=== PATIENT | female | born 1935 | race Caucasian/White ===

== ENCOUNTER 2017-06-22 15:04 | Emergency (ER) | payer MEDICARE ==
[2017-06-22] MEDS ORDERED: OXYCODONE-ACETAMINOPHEN 5-325 MG TABLET PO ONE (15:42)
[2017-06-22] MEDS ORDERED: NORMAL SALINE 1000 ML 250 ML IV ONE (15:45)
[2017-06-22] MEDS ORDERED: HYDROMORPHONE HCL INJ/PF 2 MG/ML AMPULE IV ONE (15:47)
--- NOTE | 2017-06-22 15:53 | ER Document Report ---
ED General - General Mode of Arrival: Wheelchair Information source: Patient TRAVEL OUTSIDE OF THE [place] IN LAST 30 DAYS: No - HPI Onset: Other - 06/20/2017 <HOMA BURKS - Last Filed: 06/22/17 15:56> <IOANA GALLAGHER - Last Filed: 06/22/17 18:33> - General Chief Complaint: Chest Pain Stated Complaint: CHEST PAIN Time Seen by Provider: 06/22/17 15:24 Notes: Patient is a 82 year old female presenting to the emergency department complaining of upper back pain onset 2 days ago as well as chest pain onset this morning. Patient states that she "plotted a very heavy plant" on Friday and she started to have back pain that evening. Patient states that the pain cause her inability to sleep since Friday. Patient states that her back pain radiated into her chest and down her left arm. Patient had a lidocaine injection for her spinal stenosis last Friday. Patient has a history of myocardial infarction, stents x5, CAD, hypertension, and hypercholesterolemia. (HOMA BURKS) - Related Data Allergies/Adverse Reactions: sulfamethoxazole [From Bactrim] Allergy (Verified 03/06/13 17:33) trimethoprim [From Bactrim] Allergy (Verified 03/06/13 17:33) Past Medical History - Social History Smoking Status: Never Smoker Cigarette use (# per day): No Chew tobacco use (# tins/day): No Smoking Education Provided: No Frequency of alcohol use: None Drug Abuse: None Lives with: Alone Family History: None Patient has suicidal ideation: No Patient has homicidal ideation: No - Past Medical History Cardiac Medical History: Reports: Hx Congestive Heart Failure - hospitaized 2005 , Hx Coronary Artery Disease, Hx Heart Attack - 2007, Hx Hypercholesterolemia, Hx Hypertension Endocrine Medical History: Reports: Hx Hypothyroidism GI Medical History: Reports: Hx Ulcer - Musculoskeltal Medical History: Reports Hx Arthritis, Reports Other - spinal stenosis Past Surgical History: Reports: Hx Appendectomy - 1949, Hx Section, Hx Cholecystectomy - lap 2010, Hx Coronary Stent - x 5, Hx Genitourinary Surgery - bladder tack, Hx Hysterectomy - PAULA BSO , Hx Oral Surgery - wisdom teeth removal, Hx Orthopedic Surgery - bilateral knee replacements, Hx Tonsillectomy - as child, Hx Tubal Ligation - Immunizations Hx Diphtheria, Pertussis, Tetanus Vaccination: - unk Hx Pneumococcal Vaccination: 08/25/05 <HOMA BURKS - Last Filed: 06/22/17 15:56> Review of Systems - Review of Systems Constitutional: No symptoms reported EENT: No symptoms reported Cardiovascular: See HPI, Chest pain Respiratory: No symptoms reported Gastrointestinal: No symptoms reported Genitourinary: No symptoms reported Female Genitourinary: No symptoms reported Musculoskeletal: See HPI, Back pain, Other - shoulder pain Skin: No symptoms reported Hematologic/Lymphatic: No symptoms reported Neurological/Psychological: No symptoms reported -: Yes All other systems reviewed and negative <HOMA BURKS - Last Filed: 06/22/17 15:56> Physical Exam - Vital signs Interpretation: Hypertensive, Tachycardic - General General appearance: Appears well, Alert In distress: Mild - HEENT Head: Normocephalic, Atraumatic Eyes: Normal Pupils: PERRL Mucous membranes: Moist - Respiratory Respiratory status: No respiratory distress Chest status: Nontender Breath sounds: Normal Chest palpation: Normal - Cardiovascular Rhythm: Regular, Tachycardia - becomes more tachycardic when moving her hands and speaking Heart sounds: Normal auscultation Murmur: No - Abdominal Inspection: Normal Distension: No distension Bowel sounds: Normal Tenderness: Nontender Organomegaly: No organomegaly - Back Back: Tender - scapular musculature is tender to palpation, worse on the right than on the left. Tenderness to the spinal processes., Other - Kyphosis. No bony tenderness to palpation, no stepoffs or deformitites. - Extremities General upper extremity: Normal inspection, Normal ROM, Normal strength General lower extremity: Normal inspection, Normal ROM, Normal strength - Neurological Neuro grossly intact: Yes Cognition: Normal Orientation: AAOx4 [place] Coma Scale Eye Opening: Spontaneous Chastity Coma Scale Verbal: Oriented [place] Coma Scale Motor: Obeys Commands [place] Coma Scale Total: 15 Speech: Normal - Psychological Associated symptoms: Normal affect, Normal mood - Skin Skin Temperature: Warm Skin Moisture: Dry <HOMA BURKS - Last Filed: 06/22/17 15:56> - Respiratory Chest palpation: Tender - There is some tenderness to palpate the anterior chest wall in the sternal region.. No: Normal - Back Back: Tender - The medial scapular muscles are very tender to palpate, worse on the right than on the left. Palpating this area does reproduce her chief complaint. There is also tenderness to the upper thoracic spinous processes. <IOANA GALLAGHER - Last Filed: 06/22/17 18:33> - Vital signs Vitals: Resp BP Pulse Ox 27 H 150/99 H 98 06/22/17 15:29 06/22/17 15:29 06/22/17 15:29 Course - Laboratory Result Diagrams: 06/22/17 15:26 06/22/17 15:26 <HOMA BURKS - Last Filed: 06/22/17 15:56> - Laboratory Result Diagrams: 06/22/17 15:26 06/22/17 15:26 - Diagnostic Test Radiology reviewed: Image reviewed, Reports reviewed - There is significant kyphosis with degenerative disc space narrowing at multiple levels. No compression fractures are seen. - EKG Interpretation by Nh EKG shows normal: Sinus rhythm, [place], Intervals, QRS Complexes, ST-T Waves Rate: Tachycardia - 124 Rhythm: APC's When compared to previous EKG there are: Changes noted <IOANA GALLAGHER - Last Filed: 06/22/17 18:33> - Re-evaluation Re-evalutation: 06/22/17 18:22 When the patient first checked then an EKG showed a heart rate of 124. During the history and physical, the patient became quite animated using her hands to talk ingestor and seemed excited and her heart rate actually went to 160. She settled down and received some pain medication, her heart rate was in the 120 range. I gave her 2.5 mg of metoprolol and now her heart rate has been in the 70 range. In discussing this with the patient and her son, they admitted that she did not take her blood pressure medications today which include beta- blockers. First troponin was 0.074, so a repeat done about 2 hours later was down to 0.053 At this time she is quite comfortable and has no complaints, she states she will remember to take her regular medications when she gets home, and she will stop at the drugstore to get the pain medication that her doctor had called in which is waiting for her at [facility]. (IOANA GALLAGHER) - Vital Signs Vital signs: Temp Pulse Resp BP Pulse Ox 98.6 F 78 22 H 135/92 H 96 06/22/17 15:32 06/22/17 18:00 06/22/17 17:01 06/22/17 18:00 06/22/17 17:01 - Laboratory Laboratory results interpreted by me: 06/22/17 06/22/17 15:26 15:26 Hgb 16.0 H RDW 17.1 H Sodium 145.7 H Glucose 138 H Direct Bilirubin 0.5 H AST 55 H ALT 75 H Alkaline Phosphatase 160 H Discharge <HOMA BURKS - Last Filed: 06/22/17 15:56> <IOANA GALLAGHER - Last Filed: 06/22/17 18:33> - Discharge Clinical Impression: Tachycardia Muscle strain of scapular region Qualifiers: Encounter type: initial encounter Laterality: unspecified laterality Qualified Code(s): S46.919A - Strain of unspecified muscle, fascia and tendon at shoulder and upper arm level, unspecified arm, initial encounter Chest pain Qualifiers: Chest pain type: unspecified Qualified Code(s): R07.9 - Chest pain, unspecified Condition: Stable Disposition: HOME, SELF-CARE Additional Instructions: Chest Pain of Unclear Cause: The exact cause of your chest pain isn't clear. Fortunately, there is no evidence of a dangerous medical condition. Further testing may be required to find the source of the pain. Most often, we find that this pain is coming from the chest wall -- the muscles or rib joints in the chest. You should call the physician immediately if the pain radiates to the shoulder, jaw or arms; if you start to run a fever or develop a cough; or if you develop shortness of breath, or other new or alarming symptoms. Scapular Muscle Strain: You have strained the scapular muscles. This often occurs with strenuous exertion, or during an injury that suddenly stretches the muscle. The seriousness of a strain varies. Some strains heal within days, others cause problems for months. X-rays cannot show a muscle strain. X-rays are taken only if symptoms suggest that a fracture could be present. The usual treatment of a muscle strain is rest and moist heat. The muscle can be used again once pain subsides. Be sure to take your regular medications when you get home. Sure to stop at the drugstore and seed cone picker your pain medication prescription that your doctor had called in previously. Rest your chest and back muscles for the next few days. Follow-up with your doctor this week for recheck. RETURN TO THE EMERGENCY ROOM IF ANY NEW OR WORSENING SYMPTOMS. Referrals: MILLY QURESHI PA [Primary Care Provider] - Follow up as needed Scribe Attestation: 06/22/17 18:28 I personally performed the services described in the documentation, reviewed and edited the documentation which was dictated to the scribe in my presence, and it accurately records my words and actions. (IOANA GALLAGHER) Scribe Documentation - Scribe Written by Юлия:: Юлия Arango 06/22/2017 16:08 acting as scribe for :: Sariah <HOMA BURKS - Last Filed: 06/22/17 15:56>
[2017-06-22 15:55] LABS: ABSOLUTE EOSINOPHILS # (AUTO) 0.1 10^3/uL (0.0-0.6); ABSOLUTE LYMPHOCYTES (AUTO) 2.6 10^3/uL (0.5-4.7); ABSOLUTE NEUT (AUTO) 5.4 10^3/uL (1.7-8.2); BASOPHILS % (AUTO) 0.4 % (0-2); EOSINOPHILS % (AUTO) 0.6 % (0-6); HEMATOCRIT 46.6 % (36.0-47.0); HGB HCT DIFFERENCE 1.4; LYMPHOCYTES % (AUTO) 28.7 % (13-45); MEAN CORPUSCULAR HEMOGLOBIN 32.7 pg (27.0-33.4); MEAN CORPUSCULAR HGB CONC 34.4 g/dL (32.0-36.0); MEAN CORPUSCULAR VOLUME 95 fl (80-97); RED CELL DISTRIBUTION WIDTH 17.1 % (11.5-14.0); SEGMENTED NEUTROPHILS % (AUTO) 59.3 % (42-78); WHITE BLOOD COUNT 9.1 10^3/uL (4.0-10.5)
[2017-06-22] MEDS ORDERED: ONDANSETRON HCL INJ/PF 4 MG/2 ML SDV IV ONE (16:04)
[2017-06-22 16:09] LABS: ALANINE AMINOTRANSFERASE 75 U/L (9-52); ALBUMIN 4.4 g/dL (3.5-5.0); ALKALINE PHOSPHATASE 160 U/L (38-126); ANION GAP 16 (5-19); ASPARTATE AMINO TRANSFERASE 55 U/L (14-36); BILIRUBIN,DIRECT 0.5 mg/dL (0.0-0.4); BILIRUBIN,TOTAL 1.2 mg/dL (0.2-1.3); BLOOD UREA NITROGEN 16 mg/dL (7-20); CALCIUM 10.1 mg/dL (8.4-10.2); CARBON DIOXIDE 25 mmol/L (22-30); CHLORIDE 105 mmol/L (98-107); CREATINE KINASE 51 U/L (30-135); CREATININE RESULT 0.74 mg/dL (0.52-1.25); GLUCOSE 138 mg/dL (75-110); POTASSIUM 4.1 mmol/L (3.6-5.0); SODIUM 145.7 mmol/L (137-145); TOTAL PROTEIN 7.7 g/dL (6.3-8.2)
--- NOTE | 2017-06-22 16:34 | RADIOLOGY REPORT (SQ) ---
EXAM DESCRIPTION: T SPINE AP/LAT COMPLETED DATE/TIME: 06/22/2017 4:23 pm REASON FOR STUDY: make the PA view wide enough to see the chest COMPARISON: 11/25/2011 NUMBER OF VIEWS: Two views. TECHNIQUE: AP and lateral radiographic images acquired of the thoracic spine. LIMITATIONS: None. FINDINGS: MINERALIZATION: Osteopenia. ALIGNMENT: Lumbar scoliosis. VERTEBRAE: No fracture or bone lesion. Maintained height, normal segmentation. DISCS: Multilevel degenerative disc space narrowing with osteophyte formation. HARDWARE: None in the spine. MEDIASTINUM AND SOFT TISSUES: Normal heart size and aortic contour. No soft tissue abnormality. VISUALIZED LUNG OAKES: Clear. OTHER: Vascular calcifications. IMPRESSION: Osteopenia. Multilevel degenerative changes the spine. No definite acute abnormality. TECHNICAL DOCUMENTATION: JOB ID: [id number] [email or web address]- All Rights Reserved
--- NOTE | 2017-06-22 17:05 | EKG REPORT ---
SEVERITY:- OTHERWISE NORMAL ECG - SINUS TACHYCARDIA VENTRICULAR PREMATURE COMPLEX : Confirmed by: Rusty Huff 22-Jun-2017 17:05:18
[2017-06-22] MEDS ORDERED: METOPROLOL TARTRATE PF/INJ 5 MG/5 ML SDV IV ONE (17:27)
[2017-06-22 18:27] VITALS: BP 135/92
== END 2017-06-22 19:32 | disposition home or self-care (01) ==
LOC: ER 15:04
DX: S46.919A Strain of unspecified muscle, fascia and tendon at shoulder and upper arm level, unspecified arm, initial encounter (principal); X58.XXXA Exposure to other specified factors, initial encounter; R07.9 Chest pain, unspecified; M48.00 Spinal stenosis, site unspecified; M40.209 Unspecified kyphosis, site unspecified; I10 Essential (primary) hypertension; R00.0 Tachycardia, unspecified; T44.7X6A Underdosing of beta-adrenoreceptor antagonists, initial encounter; Z91.14 Patient's other noncompliance with medication regimen; I25.10 Atherosclerotic heart disease of native coronary artery without angina pectoris; I25.2 Old myocardial infarction; Z95.5 Presence of coronary angioplasty implant and graft; Z88.1 Allergy status to other antibiotic agents; Z79.899 Other long term (current) drug therapy
CPT/HCPCS: 93005; 99285; 96374; 96375; 36415; 82550; 85025; 80053; 84484; 72070; 93010; J3490; J1170; J2405; J7030

== ENCOUNTER 2018-07-03 09:33 | Emergency (ER) | payer MEDICARE, OTHER ==
[2018-07-03] MEDS ORDERED: IPRATROPIUM/ALBUTEROL 0.5-2.5 MG/3 ML AMPUL NEB ONE (10:15)
--- NOTE | 2018-07-03 10:20 | ER Document Report ---
ED General - General Chief Complaint: Respiratory Distress Stated Complaint: SHORTNESS OF BREATH Time Seen by Provider: 07/03/18 09:54 Mode of Arrival: Medic Information source: Patient, [facility] Records Notes: 83-year-old female with congestive heart failure, coronary artery disease, hyperlipidemia, hypertension, hypothyroidism presents via EMS with complaint of shortness of breath that started 4 days prior to arrival. Patient also complaining of a productive cough that started 4 days ago. She states her shortness of breath his worse with activity. Patient denies fever, chills, nausea, vomiting, chest pain, abdominal pain. She states she does have pain in both legs which is chronic for her secondary to severe arthritis for which she sees pain management for. She denies any previous history of PE or DVT. She denies any history of tobacco use. TRAVEL OUTSIDE OF THE [place] IN LAST 30 DAYS: No - HPI Onset: Other Onset/Duration: Gradual, Persistent Quality of pain: No pain Severity: Mild Associated symptoms: Body/muscle aches, Productive cough, Shortness of breath. denies: Chest pain, Fever, Headache, Nausea, Vomiting Exacerbated by: Walking, Coughing Relieved by: Remaining still Similar symptoms previously: Yes Recently seen / treated by doctor: Yes - Related Data Allergies/Adverse Reactions: sulfamethoxazole [From Bactrim] Allergy (Verified 07/03/18 09:35) trimethoprim [From Bactrim] Allergy (Verified 07/03/18 09:35) Past Medical History - General Information source: Patient - Social History Smoking Status: Never Smoker Frequency of alcohol use: None Drug Abuse: None Lives with: Intermediate Family History: None Patient has suicidal ideation: No Patient has homicidal ideation: No - Past Medical History Cardiac Medical History: Reports: Hx Congestive Heart Failure - hospitaized 2005 , Hx Coronary Artery Disease, Hx Heart Attack - 2007, Hx Hypercholesterolemia, Hx Hypertension Denies: Hx Atrial Fibrillation, Hx Peripheral Vascular Disease, Hx Heart Murmur Pulmonary Medical History: Denies: Hx Tuberculosis Endocrine Medical History: Reports: Hx Hypothyroidism. Denies: Hx Graves' Disease, Hx Hyperthyroidism Renal/ Medical History: Denies: Hx End Stage Renal Disease, Hx Kidney Stones, Hx Ovarian Cysts, Hx Peritoneal Dialysis, Hx Pelvic Inflammatory Disease Malignancy Medical History: Denies: Hx Breast Cancer, Hx Cervical Cancer, Hx Leukemia, Hx Ovarian Cancer GI Medical History: Reports: Hx Ulcer - . Denies: Hx Crohn's Disease, Hx Gastroesophageal Reflux Disease, Hx Hiatal Hernia, Hx Irritable Bowel, Hx Liver Failure, Hx Pancreatitis Musculoskeletal Medical History: Reports Hx Arthritis, Denies Hx Fibromyalgia, Denies Hx Muscular Dystrophy Psychiatric Medical History: Denies: Hx Bipolar Disorder, Hx Depression, Hx Post Traumatic Stress Disorder , Hx Schizophrenia Traumatic Medical History: Denies: Hx Fractures Infectious Medical History: Denies: Hx HIV Past Surgical History: Reports: Hx Appendectomy - 1949, Hx Section, Hx Cholecystectomy - lap 2010, Hx Coronary Stent - x 5, Hx Genitourinary Surgery - bladder tack, Hx Hysterectomy - PAULA BSO , Hx Oral Surgery - wisdom teeth removal, Hx Orthopedic Surgery - bilateral knee replacements, Hx Tonsillectomy - as child, Hx Tubal Ligation. Denies: Hx Bowel Surgery, Hx Colostomy, Hx Coronary Artery Bypass Graft, Hx Gastric Bypass Surgery, Hx Herniorrhaphy, Hx Mastectomy, Hx Pacemaker - Immunizations Hx Diphtheria, Pertussis, Tetanus Vaccination: - unk Hx Pneumococcal Vaccination: 08/25/05 Review of Systems - Review of Systems Notes: REVIEW OF SYSTEMS: CONSTITUTIONAL : Denies fever, chills, or sweats. Denies recent illness. Denies weight loss, recent hospitalizations. EENT: Denies visual changes, eye pain. Denies sore throat, oral lesions, difficulty swallowing. CARDIOVASCULAR: Denies chest pain. Denies palpitations. Denies lower extremity edema. RESPIRATORY: Positive cough. Positive shortness of breath, denies wheezing GASTROINTESTINAL: Denies abdominal pain or distention. Denies nausea, vomiting , or diarrhea. Denies blood in vomitus, stools, or per rectum. Denies black, tarry stools. Denies constipation. GENITOURINARY: Denies difficulty urinating, painful urination, frequency, blood in urine, or vaginal discharge. MUSCULOSKELETAL: Denies back or neck pain or stiffness. Denies joint swelling. SKIN: Denies rash, lesions or sores. HEMATOLOGIC : Denies easy bruising or bleeding. LYMPHATIC: Denies swollen glands. NEUROLOGICAL: Denies confusion or altered mental status. Denies loss of consciousness. Denies dizziness or lightheadedness. Denies headache. Denies weakness or paralysis. Denies problems difficulty with ambulation, slurred speech. Denies sensory loss, numbness, or tingling. Denies seizures. PSYCHIATRIC: Denies anxiety or stress. Denies depression, suicidal ideation, or homicidal ideation. Denies visual or auditory hallucinations. Physical Exam - Vital signs Vitals: Temp Pulse Resp BP Pulse Ox 97.4 F 117 H 18 118/79 95 07/03/18 09:44 07/03/18 09:44 07/03/18 09:44 07/03/18 09:44 07/03/18 09:44 Interpretation: Tachycardic. No: Febrile - Notes Notes: PHYSICAL EXAMINATION: GENERAL: Well-appearing, well-nourished and in no acute distress. HEAD: Atraumatic, normocephalic. EYES: Pupils equal round and reactive to light, extraocular movements intact, conjunctiva are normal. ENT: Nares patent, oropharynx clear without exudates. Moist mucous membranes. NECK: Normal range of motion, supple without lymphadenopathy LUNGS: Coarse breath sounds bilaterally. No wheezes. No increased work of breathing. No accessory muscle use. Patient does have episodes of hypoxia on monitor. HEART: Tachycardic with regular rhythm without murmurs ABDOMEN: Soft, nontender, nondistended abdomen. No guarding, no rebound. No masses appreciated. Female : deferred Musculoskeletal: Normal range of motion, no pitting or edema. No cyanosis. NEUROLOGICAL: Cranial nerves grossly intact. Normal speech, normal gait. Normal sensory, motor exams PSYCH: Normal mood, normal affect. SKIN: Warm, Dry, normal turgor, no rashes or lesions noted. Course - Re-evaluation Re-evalutation: Laboratory 07/03/18 07/03/18 07/03/18 10:07 10:07 10:07 WBC 10.0 RBC 5.02 Hgb 16.6 H Hct 47.5 H MCV 95 MCH 33.0 MCHC 34.9 RDW 15.6 H Plt Count 323 Seg Neutrophils % 82.1 H Lymphocytes % 11.9 L Monocytes % 5.3 Eosinophils % 0.4 Basophils % 0.3 Absolute Neutrophils 8.2 Absolute Lymphocytes 1.2 Absolute Monocytes 0.5 Absolute Eosinophils 0.0 Absolute Basophils 0.0 D-Dimer Sodium 141.9 Potassium 3.8 Chloride 103 Carbon Dioxide 22 Anion Gap 17 BUN 16 Creatinine 0.53 Est GFR ( Amer) > 60 Est GFR (Non-Af Amer) > 60 Glucose 150 H Calcium 9.4 Total Bilirubin 0.7 Direct Bilirubin 0.3 Neonat Total Bilirubin Not Reportable Neonat Direct Bilirubin Not Reportable Neonat Indirect Bili Not Reportable AST 41 H ALT 18 Alkaline Phosphatase 149 H Creatine Kinase 59 CK-MB (CK-2) 8.45 H Troponin I 0.906 NT-Pro-B Natriuret Pep 2600 H Total Protein 7.7 Albumin 3.7 07/03/18 07/03/18 07/03/18 10:07 12:18 12:18 WBC RBC Hgb Hct MCV MCH MCHC RDW Plt Count Seg Neutrophils % Lymphocytes % Monocytes % Eosinophils % Basophils % Absolute Neutrophils Absolute Lymphocytes Absolute Monocytes Absolute Eosinophils Absolute Basophils D-Dimer Cancelled > 20.00 H* Sodium Potassium Chloride Carbon Dioxide Anion Gap BUN Creatinine Est GFR ( Amer) Est GFR (Non-Af Amer) Glucose Calcium Total Bilirubin Direct Bilirubin Neonat Total Bilirubin Neonat Direct Bilirubin Neonat Indirect Bili AST ALT Alkaline Phosphatase Creatine Kinase CK-MB (CK-2) Troponin I 0.975 NT-Pro-B Natriuret Pep Total Protein Albumin Chest X-Ray 07/03/18 09:46 IMPRESSION: Chronic lung changes with no acute cardiopulmonary disease. Chest/Abdomen CTA 07/03/18 12:14 IMPRESSION: 1. Examination is slightly limited by breath motion artifact appear within this limitation, no evidence of pulmonary embolism through the segmental pulmonary arteries. 2. Coronary artery disease. 83-year-old female with congestive heart failure, coronary artery disease, hyperlipidemia, hypertension, hypothyroidism presents via EMS with complaint of shortness of breath that started 4 days prior to arrival. Patient also complaining of a productive cough that started 4 days ago. She states her shortness of breath his worse with activity. Upon arrival patient was placed on cardiac tech and EKG was obtained which showed the patient to be in sinus tachycardia. Patient does have T wave inversions in the lateral leads that I do not appreciate on previous EKG performed last year. Vitals were reviewed upon arrival and patient is hypoxic, tachycardic. Exam is significant for bilateral coarse breath sounds. Patient's hypoxia resolved after 1 breathing treatment. She never appeared to be in respiratory distress. She had no accessory muscle use. She had no increased work of breathing and she was able to speak in full sentences. Because of the persistent tachycardia CTA was obtained and negative for PE. Patient does have an elevated troponin. She has had previous cardiac surgery at [facility] and would like to be transferred there. Patient was administered aspirin, Lovenox. Her home medications of metoprolol and amlodipine were administered and patient's heart rate still remains around 100. Unclear whether this mild elevation of troponin is secondary to demand ischemia but with the patient's complex cardiac history she may require cardiac catheterization. Family is at the bedside and states that they are agreeable with transfer. Patient is resting comfortably. CBC is without leukocytosis or anemia. CMP shows no significant electrolyte abnormalities. Patient's troponin is elevated at 0.975 x 2. She does have an elevated BNP of 2600. Patient's CK-MB is also elevated at 8.45. 07/03/18 13:57 Patient received Lovenox after her first elevated troponin. She remains tachycardic. Will we will try her home medications of metoprolol and amlodipine. CTA negative for PE. [facility] cardiac connection contacted for transfer. I did discuss the case with the license examiner who agrees to accept the patient for admission. 07/03/18 16:44 07/03/18 16:44 07/03/18 16:45 - Vital Signs Vital signs: Temp Pulse Resp BP Pulse Ox 97.4 F 117 H 15 129/75 H 97 07/03/18 09:44 07/03/18 09:44 07/03/18 14:01 07/03/18 14:01 07/03/18 14:01 - Laboratory Result Diagrams: 07/03/18 10:07 07/03/18 10:07 Laboratory results interpreted by me: 07/03/18 07/03/18 07/03/18 10:07 10:07 10:07 Hgb 16.6 H Hct 47.5 H RDW 15.6 H Seg Neutrophils % 82.1 H Lymphocytes % 11.9 L D-Dimer Glucose 150 H AST 41 H Alkaline Phosphatase 149 H CK-MB (CK-2) 8.45 H NT-Pro-B Natriuret Pep 2600 H 07/03/18 12:18 Hgb Hct RDW Seg Neutrophils % Lymphocytes % D-Dimer > 20.00 H* Glucose AST Alkaline Phosphatase CK-MB (CK-2) NT-Pro-B Natriuret Pep - Diagnostic Test Radiology reviewed: Image reviewed, Reports reviewed - EKG Interpretation by Me EKG shows normal: Sinus rhythm Rate: Tachycardia [place]/QRS: Left axis deviation - T wave inversions in the lateral leads. QTc 421 Critical Care Note - Critical Care Note Total time excluding time spent on procedures (mins): 35 - Minutes of critical care time spent in direct contact evaluating and reevaluating the patient, treating symptoms, reviewing labs and studies and speaking with family and consultants excluding any procedures Discharge - Discharge Clinical Impression: NSTEMI (non-ST elevated myocardial infarction), Tachycardia, Elevated d-dimer Dyspnea Qualifiers: Dyspnea type: unspecified Qualified Code(s): R06.00 - Dyspnea, unspecified Congestive heart failure Qualifiers: Heart failure type: unspecified Heart failure chronicity: unspecified Qualified Code(s): I50.9 - Heart failure, unspecified Condition: Fair Disposition: [facility] Forms: Elevated Blood Pressure Referrals: MILLY QURESHI PA [Primary Care Provider] - Follow up as needed
[2018-07-03 10:41] LABS: ABSOLUTE LYMPHOCYTES (AUTO) 1.2 10^3/uL (0.5-4.7); ABSOLUTE MONOCYTES (AUTO) 0.5 10^3/uL (0.1-1.4); ABSOLUTE NEUT (AUTO) 8.2 10^3/uL (1.7-8.2); BASOPHILS % (AUTO) 0.3 % (0-2); EOSINOPHILS % (AUTO) 0.4 % (0-6); HEMATOCRIT 47.5 % (36.0-47.0); HEMOGLOBIN 16.6 g/dL (12.0-15.5); LYMPHOCYTES % (AUTO) 11.9 % (13-45); MEAN CORPUSCULAR HGB CONC 34.9 g/dL (32.0-36.0); MEAN CORPUSCULAR VOLUME 95 fl (80-97); MONOCYTES % (AUTO) 5.3 % (3-13); PLATELET COUNT 323 10^3/uL (150-450); RED BLOOD COUNT 5.02 10^6/uL (3.72-5.28); RED CELL DISTRIBUTION WIDTH 15.6 % (11.5-14.0); SEGMENTED NEUTROPHILS % (AUTO) 82.1 % (42-78); TOTAL CELLS COUNTED % (AUTO) 100 %
--- NOTE | 2018-07-03 10:50 | RADIOLOGY REPORT (SQ) ---
EXAM DESCRIPTION: CHEST SINGLE VIEW COMPLETED DATE/TIME: 07/03/2018 10:39 am REASON FOR STUDY: sob COMPARISON: 03/31/2015 EXAM PARAMETERS: NUMBER OF VIEWS: One view. TECHNIQUE: Single frontal radiographic view of the chest acquired. RADIATION DOSE: NA LIMITATIONS: None. FINDINGS: LUNGS AND PLEURA: The lungs are hyperexpanded. There is no infiltrate or effusion. No ma ss. MEDIASTINUM AND HILAR STRUCTURES: No masses. Contour normal. HEART AND VASCULAR STRUCTURES: Heart normal in size. Normal vasculature. BONES: No acute findings. HARDWARE: None in the chest. OTHER: No other significant finding. IMPRESSION: Chronic lung changes with no acute cardiopulmonary disease. TECHNICAL DOCUMENTATION: JOB ID: [id number] [employer]- All Rights Reserved Reading location - IP/workstation name: [email or web address]
[2018-07-03 10:59] LABS: ALANINE AMINOTRANSFERASE 18 U/L (9-52); ALBUMIN 3.7 g/dL (3.5-5.0); ALKALINE PHOSPHATASE 149 U/L (38-126); ANION GAP 17 (5-19); ASPARTATE AMINO TRANSFERASE 41 U/L (14-36); BILIRUBIN,DIRECT 0.3 mg/dL (0.0-0.4); BILIRUBIN,TOTAL 0.7 mg/dL (0.2-1.3); BLOOD UREA NITROGEN 16 mg/dL (7-20); CALCIUM 9.4 mg/dL (8.4-10.2); CARBON DIOXIDE 22 mmol/L (22-30); CHLORIDE 103 mmol/L (98-107); CREATINE KINASE 59 U/L (30-135); GLUCOSE 150 mg/dL (75-110); POTASSIUM 3.8 mmol/L (3.6-5.0); SODIUM 141.9 mmol/L (137-145); TOTAL PROTEIN 7.7 g/dL (6.3-8.2)
[2018-07-03 11:16] LABS: CREATINE KINASE MB 8.45 ng/mL (<4.55)
[2018-07-03 11:17] LABS: TROPONIN I 0.906 ng/mL
[2018-07-03] MEDS ORDERED: ASPIRIN 81 MG TABLET, CHEWABLE PO ONE (11:22)
[2018-07-03] MEDS: ENOXAPARIN SODIUM INJ 60 MG/0.6 ML DISP.SYRIN SUBCUT SCH ×2 (11:27→23:13)
--- NOTE | 2018-07-03 13:07 | RADIOLOGY REPORT (SQ) ---
EXAM DESCRIPTION: CTA CHEST COMPLETED DATE/TIME: 07/03/2018 12:54 pm REASON FOR STUDY: sob/tachy/hypoxic COMPARISON: Same day chest radiograph TECHNIQUE: CT scan of the chest performed using helical scanning technique with dynamic intravenous contrast injection. Images reviewed with lung, soft tissue and bone windows. Reconstructed coronal and sagittal MPR images reviewed. Additional 3 dimensional post-processing performed to develop Maximal Intensity Projection images (VT P). All images stored on PACS. All CT scanners at this facility use dose modulation, iterative reconstruction, and/or weight based d osing when appropriate to reduce radiation dose to as low as reasonably achievable (ALARA). [facility]: Dose Right [facility]: CareDose [facility]: Dose Right [facility]: Teradose 4D [facility]: Lala CONTRAST TYPE AND DOSE: contrast/concentration: Isovue 350.00 mg/ml; Total Contrast Delivered: 62.0 ml; Total Saline Delivered: 78.0 ml Contrast bolus optimized for the pulmonary arteries. Not diagnostic for the aorta. RENAL FUNCTION: GFR > 60. RADIATION DOSE: CT Rad equipment meets quality standard of care and radiation dose reduction techniq ues were employed. CTDIvol: 13.2 - 15.3 mGy. DLP: 601 mGy-cm. . LIMITATIONS: None. FINDINGS: LUNGS AND PLEURA: No masses, infiltrates, or pneumothorax. No pleural effusions or pleura l calcifications. AORTA AND GREAT VESSELS: No aneurysm. Calcific atherosclerosis of the thoracic aorta. Contrast bolu s not optimized for the aorta. HEART: No pericardial effusion. Three-vessel coronary artery stents. PULMONARY ARTERIES: Contrast bolus is adequate for evaluation of pulmonary embolism. Examination is slightly limited by breath motion artifact. Within this limitation, no evidence of pulmonary emboli sm through the segmental pulmonary arteries. HILAR AND MEDIASTINAL STRUCTURES: No identified masses or abnormal nodes. HARDWARE: None in the chest. UPPER ABDOMEN: No significant findings. Limited exam. THYROID AND OTHER SOFT TISSUES: No masses. No adenopathy. BONES: No acute or significant finding. 3D MIPS: Confirm above findings. OTHER: No other significant finding. IMPRESSION: 1. Examination is slightly limited by breath motion artifact appear within this limitat ion, no evidence of pulmonary embolism through the segmental pulmonary arteries. 2. Coronary artery disease. COMMENT: Quality ID # [id number]: Final reports with documentation of one or more dose reduction techniques (e.g., Automated exposure control, adjustment of the mA and/or kV according to patient size, use of iterative reconstruction technique) TECHNICAL DOCUMENTATION: JOB ID: [id number] [employer]- All Rights Reserved Reading location - IP/workstation name: [email or web address]
--- NOTE | 2018-07-03 13:42 | EKG REPORT ---
SEVERITY:- ABNORMAL ECG - SINUS TACHYCARDIA ATRIAL PREMATURE COMPLEX BORDERLINE LEFT AXIS DEVIATION ABNRM R PROG, CONSIDER ASMI OR LEAD PLACEMENT ABNORMAL T, CONSIDER ISCHEMIA, LATERAL LEADS : Confirmed by: Sanjeev Conti MD 03-Jul-2018 13:41:52
[2018-07-03] MEDS ORDERED: METOPROLOL SUCCINATE 25 MG TAB.SR.24H PO ONE (13:49)
[2018-07-03] MEDS ORDERED: NORMAL SALINE 500 ML IV ONE (13:52)
[2018-07-03] MEDS ORDERED: AMLODIPINE BESYLATE 10 MG TABLET PO ONE (13:56)
[2018-07-03] MEDS ORDERED: METOPROLOL TARTRATE PF/INJ 5 MG/5 ML SDV IV SCH (21:15)
[2018-07-03 23:17] VITALS: BP 158/91
--- NOTE | 2018-07-04 08:00 | EKG REPORT ---
SEVERITY:- ABNORMAL ECG - SUPRAVENTRICULAR TACHYCARDIA MULTIPLE PREMATURE COMPLEXES, SUPRAVEN LVH WITH SECONDARY REPOLARIZATION ABNORMALITY : Confirmed by: Sanjeev Conti MD 04-Jul-2018 07:59:45
== END 2018-07-03 23:30 | disposition short-term general hospital (02) ==
LOC: ER 09:33
DX: I11.0 Hypertensive heart disease with heart failure (principal); I50.9 Heart failure, unspecified; I21.4 Non-ST elevation (NSTEMI) myocardial infarction; I25.10 Atherosclerotic heart disease of native coronary artery without angina pectoris; R09.02 Hypoxemia; R00.0 Tachycardia, unspecified; R06.02 Shortness of breath; R05 Cough; M19.90 Unspecified osteoarthritis, unspecified site; Z79.899 Other long term (current) drug therapy; Z88.1 Allergy status to other antibiotic agents; Z95.5 Presence of coronary angioplasty implant and graft
CPT/HCPCS: 93005; 94640; 99291; 96372; 96360; 36415; 82553; 82550; 85025; 80053; 84484; 85379; 83880; 71045; 71275; 93010; A9270 ×4; J7040; J1650; J7620

== ENCOUNTER 2018-11-06 14:28 | Observation (INO) | payer MEDICARE, OTHER ==
--- NOTE | 2018-11-06 18:33 | ER Document Report ---
ED Medical Screen (RME) - General Chief Complaint: Shortness Of Breath Stated Complaint: SHORTNESS OF BREATH Time Seen by Provider: 11/06/18 18:32 Primary Care Provider: MIHAELA MORGAN MD [Primary Care Provider] - Follow up as needed TRAVEL OUTSIDE OF THE [place] IN LAST 30 DAYS: No - HPI Notes: 11/06/18 18:32 Patient is a 83-year-old female that presents to the emergency department for chief complaint of shortness of breath and dyspnea. Patient reports increased dyspnea with exertion over the last week. She states minimal effort causes her to feel short of breath. She also had an episode of chest pain yesterday that she describes as a substernal aching. She denies recent palpitations but states she has a history of tachycardia and was at via did not in June. Patient had right hip replacement in July 2018. She denies history of DVT/PE, recent leg swelling and cramping. ROS: GENERAL: Denies fever of chills CV: chest pain PHYSICAL EXAMINATION: GENERAL: Well-appearing, well-nourished and in no acute distress. HEAD: Atraumatic, normocephalic. EYES: Pupils equal round extraocular movements intact, conjunctiva are normal. ENT: Nares patent NECK: Normal range of motion LUNGS: No respiratory distress Musculoskeletal: Normal range of motion NEUROLOGICAL: Normal speech, normal gait. PSYCH: Normal mood, normal affect. MDM: Patient seen and examined for rapid initial assessment. Vital signs reviewed. A comprehensive ED assessment and evaluation of the patient, analysis of test results and completion of the medical decision making process will be conducted by additional ED providers. - Related Data Allergies/Adverse Reactions: sulfamethoxazole [From Bactrim] Allergy (Verified 07/03/18 09:35) trimethoprim [From Bactrim] Allergy (Verified 07/03/18 09:35) Past Medical History - Past Medical History Cardiac Medical History: Reports: Hx Congestive Heart Failure - hospitaized 2005, Hx Coronary Artery Disease, Hx Heart Attack - 2007, Hx Hypercholesterolemia, Hx Hypertension Denies: Hx Atrial Fibrillation, Hx Peripheral Vascular Disease, Hx Heart Murmur Pulmonary Medical History: Denies: Hx Tuberculosis Endocrine Medical History: Reports: Hx Hypothyroidism. Denies: Hx Graves' Disease, Hx Hyperthyroidism Renal/ Medical History: Denies: Hx End Stage Renal Disease, Hx Kidney Stones, Hx Ovarian Cysts, Hx Peritoneal Dialysis, Hx Pelvic Inflammatory Disease Malignancy Medical History: Denies: Hx Breast Cancer, Hx Cervical Cancer, Hx Leukemia, Hx Ovarian Cancer GI Medical History: Reports: Hx Ulcer - s. Denies: Hx Crohn's Disease, Hx Gastroesophageal Reflux Disease, Hx Hiatal Hernia, Hx Irritable Bowel, Hx Liver Failure, Hx Pancreatitis Musculoskeltal Medical History: Reports Hx Arthritis, Denies Hx Fibromyalgia, Denies Hx Muscular Dystrophy Psychiatric Medical History: Denies: Hx Bipolar Disorder, Hx Depression, Hx Post Traumatic Stress Disorder, Hx Schizophrenia Traumatic Medical History: Denies: Hx Fractures Infectious Medical History: Denies: Hx HIV Past Surgical History: Reports: Hx Appendectomy - 1949, Hx Section, Hx Cholecystectomy - lap 2010, Hx Coronary Stent - x , Hx Genitourinary Surgery - bladder tack, Hx Hysterectomy - PAULA BSO , Hx Oral Surgery - wisdom teeth removal, Hx Orthopedic Surgery - bilateral knee replacements, Hx Tonsillectomy - as child, Hx Tubal Ligation. Denies: Hx Bowel Surgery, Hx Colostomy, Hx Coronary Artery Bypass Graft, Hx Gastric Bypass Surgery, Hx Herniorrhaphy, Hx Mastectomy, Hx Pacemaker - Immunizations Hx Diphtheria, Pertussis, Tetanus Vaccination: - unk Physical Exam - Vital signs Vitals: Temp Pulse Resp BP Pulse Ox 97.5 F 73 18 114/78 97 11/06/18 14:48 11/06/18 14:48 11/06/18 14:48 11/06/18 14:48 11/06/18 14:48 Course - Vital Signs Vital signs: Temp Pulse Resp BP Pulse Ox 97.5 F 73 18 114/78 97 11/06/18 14:48 11/06/18 14:48 11/06/18 14:48 11/06/18 14:48 11/06/18 14:48 Doctor's Discharge - Discharge Referrals: MIHAELA MORGAN MD [Primary Care Provider] - Follow up as needed
[2018-11-06 19:38] LABS: ABSOLUTE EOSINOPHILS # (AUTO) 0.1 10^3/uL (0.0-0.6); ABSOLUTE LYMPHOCYTES (AUTO) 2.3 10^3/uL (0.5-4.7); ABSOLUTE MONOCYTES (AUTO) 0.5 10^3/uL (0.1-1.4); ABSOLUTE NEUT (AUTO) 4.4 10^3/uL (1.7-8.2); BASOPHILS % (AUTO) 0.5 % (0-2); EOSINOPHILS % (AUTO) 1.9 % (0-6); HEMATOCRIT 43.8 % (36.0-47.0); HEMOGLOBIN 14.8 g/dL (12.0-15.5); LYMPHOCYTES % (AUTO) 31.6 % (13-45); MEAN CORPUSCULAR HEMOGLOBIN 31.9 pg (27.0-33.4); MEAN CORPUSCULAR HGB CONC 33.8 g/dL (32.0-36.0); MEAN CORPUSCULAR VOLUME 95 fl (80-97); MONOCYTES % (AUTO) 6.5 % (3-13); PLATELET COUNT 375 10^3/uL (150-450); RED BLOOD COUNT 4.63 10^6/uL (3.72-5.28); RED CELL DISTRIBUTION WIDTH 15.9 % (11.5-14.0); SEGMENTED NEUTROPHILS % (AUTO) 59.5 % (42-78); TOTAL CELLS COUNTED % (AUTO) 100 %; WHITE BLOOD COUNT 7.4 10^3/uL (4.0-10.5)
--- NOTE | 2018-11-06 19:38 | RADIOLOGY REPORT (SQ) ---
EXAM DESCRIPTION: CHEST SINGLE VIEW COMPLETED DATE/TIME: 11/06/2018 7:12 pm REASON FOR STUDY: dyspnea COMPARISON: None. NUMBER OF VIEWS: One view. TECHNIQUE: Single frontal radiographic view of the chest acquired. LIMITATIONS: None. FINDINGS: LUNGS AND PLEURA: No opacities, masses or pneumothorax. Blunting of the right costophreni c angle suggests a small pleural effusion. . Attenuated blood vessels and flattened eri-diaphragms. MEDIASTINUM AND HILAR STRUCTURES: No masses. Contour normal. HEART AND VASCULAR STRUCTURES: Heart normal in size. Normal vasculature. BONES: No acute findings. HARDWARE: None in the chest. OTHER: No other significant finding. IMPRESSION: Likely small right-sided pleural effusion. Otherwise stable radiographic appearance of the chest. TECHNICAL DOCUMENTATION: JOB ID: [id number] [employer]- All Rights Reserved Reading location - IP/workstation name: [email or web address]
[2018-11-06 19:50] LABS: ANION GAP 14 (5-19); BLOOD UREA NITROGEN 13 mg/dL (7-20); CALCIUM 8.9 mg/dL (8.4-10.2); CARBON DIOXIDE 21 mmol/L (22-30); CHLORIDE 102 mmol/L (98-107); GLUCOSE 89 mg/dL (75-110); POTASSIUM 3.4 mmol/L (3.6-5.0); SODIUM 137.4 mmol/L (137-145)
--- NOTE | 2018-11-06 22:43 | EKG REPORT ---
SEVERITY:- ABNORMAL ECG - SINUS RHYTHM MULTIPLE ATRIAL PREMATURE COMPLEXES ABNORMAL T, CONSIDER ISCHEMIA, ANT-LAT LEADS : Confirmed by: Sanjeev Conti MD 06-Nov-2018 22:42:26
--- NOTE | 2018-11-06 23:14 | RADIOLOGY REPORT (SQ) ---
EXAM DESCRIPTION: XR RIGHT HIP 2 OR MORE VIEWS COMPLETED DATE/TME: 11/06/2018 21:45 CLINICAL HISTORY: 83 years, Female, right hip pain COMPARISON: None. NUMBER OF VIEWS: TECHNIQUE: LIMITATIONS: None. FINDINGS: No acute fracture or dislocation. There is an old fracture of the right hip, with metallic fixation in place. There are no significant degenerative changes involving the hip joints. IMPRESSION: No acute finding. copyright 2010 [employer]- All Rights Reserved
[2018-11-07 00:17] LABS: APPEARANCE,URINE CLEAR; BILIRUBIN,URINE NEGATIVE (NEGATIVE); COLOR,URINE YELLOW; GLUCOSE, URINE NEGATIVE (NEGATIVE); KETONES,URINE 20 mg/dL (NEGATIVE); LEUKOCYTE ESTERASE,URINE NEGATIVE (NEGATIVE); NITRITE,URINE NEGATIVE (NEGATIVE); PROTEIN,URINE NEGATIVE (NEGATIVE); URINE SPECIFIC GRAVITY 1.023; UROBILINOGEN,URINE NEGATIVE mg/dL (<2.0)
[2018-11-07] MEDS ORDERED: FUROSEMIDE INJ/PF 40 MG/4 ML SDV IV ONE (00:54)
[2018-11-07] MEDS ORDERED: MAG HYDROX/AL HYDROX/SIMETH SUSP 30 ML UDCUP PO PRN (00:54)
--- NOTE | 2018-11-07 00:57 | ER Document Report ---
Entered by KIRSTY NELSON SCRIBE 11/06/18 [id number] Acting as scribe for:BRYAN MCKNIGHT DO ED General - General Chief Complaint: Shortness Of Breath Stated Complaint: SHORTNESS OF BREATH Time Seen by Provider: 11/06/18 18:32 Mode of Arrival: Ambulatory Information source: Patient Notes: 83-year-old female who presents to the emergency department today with complaints of shortness of breath for 1 week with associated proximal right leg pain. Patient states she has a cough that is mostly nonproductive. Patient states she has fractured her right hip in the past, on August 19 2018, states this is where it hurts. Patient denies chest pain or usage of home oxygen. TRAVEL OUTSIDE OF THE [place] IN LAST 30 DAYS: No - Related Data Allergies/Adverse Reactions: sulfamethoxazole [From Bactrim] Allergy (Verified 07/03/18 09:35) trimethoprim [From Bactrim] Allergy (Verified 07/03/18 09:35) Past Medical History - General Information source: Patient - Social History Smoking Status: Never Smoker Cigarette use (# per day): No Chew tobacco use (# tins/day): No Frequency of alcohol use: None Drug Abuse: None Lives with: Family Family History: Reviewed & Not Pertinent Patient has suicidal ideation: No Patient has homicidal ideation: No - Past Medical History Cardiac Medical History: Reports: Hx Congestive Heart Failure - hospitaized 2005, Hx Coronary Artery Disease, Hx Heart Attack - 2007, Hx Hypercholesterolemia, Hx Hypertension Endocrine Medical History: Reports: Hx Hypothyroidism GI Medical History: Reports: Hx Ulcer - Musculoskeletal Medical History: Reports Hx Arthritis Past Surgical History: Reports: Hx Appendectomy - 1949, Hx Section, Hx Cholecystectomy - lap 2010, Hx Coronary Stent - x , Hx Genitourinary Surgery - bladder tack, Hx Hysterectomy - PAULA BSO , Hx Oral Surgery - wisdom teeth removal, Hx Orthopedic Surgery - bilateral knee replacements, Hx Tonsillectomy - as child, Hx Tubal Ligation - Immunizations Hx Diphtheria, Pertussis, Tetanus Vaccination: - unk Hx Pneumococcal Vaccination: 08/25/05 Review of Systems - Review of Systems Constitutional: No symptoms reported EENT: No symptoms reported Cardiovascular: denies: Chest pain Respiratory: See HPI, Cough, Short of breath Gastrointestinal: No symptoms reported Genitourinary: No symptoms reported Female Genitourinary: No symptoms reported Musculoskeletal: See HPI, Other - RLE pain Skin: No symptoms reported Hematologic/Lymphatic: No symptoms reported Neurological/Psychological: No symptoms reported -: Yes All other systems reviewed and negative Physical Exam - Vital signs Vitals: Temp Pulse Resp BP Pulse Ox 97.5 F 73 18 114/78 97 11/06/18 14:48 11/06/18 14:48 11/06/18 14:48 11/06/18 14:48 11/06/18 14:48 - Notes Notes: PHYSICAL EXAM GENERAL: Alert, interacts well. No acute distress. HEAD: Normocephalic, atraumatic. EYES: Pupils equal, round, and reactive to light. Extraocular movements intact. ENT: Oral mucosa moist, tongue midline. NECK: Full range of motion. Supple. Trachea midline. LUNGS: Clear to auscultation bilaterally, no wheezes, rales, or rhonchi. No respiratory distress. HEART: Irregularly irregular which corresponds with PVCs on the monitor, no evidence of atrial fibrillation. No murmurs, gallops, or rubs. ABDOMEN: Soft, non-tender. Non-distended. Bowel sounds present in all 4 quadrants. No guarding, rigidity, or rebound. EXTREMITIES: Moves all 4 extremities spontaneously. Right proximal femur is tender with palpation, right leg is slightly shortened, possibly positional. No edema, radial and dorsalis pedis pulses 2/4 bilaterally. No cyanosis. NEUROLOGICAL: Alert and oriented x3. Normal speech. PSYCH: Normal affect, normal mood. SKIN: Warm, dry, normal turgor. No rashes or lesions noted. Course - Re-evaluation Re-evalutation: 11/07/18 00:55 CBC unremarkable, CMP shows a slight low potassium at 2.4, CO2 slightly low at 21, cardiac enzymes negative x2 0.027 and 0.017 respectively, proBNP elevated at 3530, urinalysis is trace ketones and is otherwise unremarkable, chest x-ray shows a right-sided pleural effusion. Patient had some mild hypoxia here. Otherwise stable. Patient was given potassium and Lasix here and discussed with Dr. Rojo who agrees to admit the patient to his service on the telemetry care unit in observation status. - Vital Signs Vital signs: Temp Pulse Resp BP Pulse Ox 97.5 F 73 18 152/78 H 96 11/06/18 14:48 03/15/19 14:48 11/07/18 02:01 11/07/18 02:01 11/07/18 02:01 - Laboratory Result Diagrams: 11/06/18 19:20 11/06/18 19:20 Laboratory results interpreted by me: 11/06/18 11/06/18 11/06/18 19:20 19:20 19:20 RDW 15.9 H Potassium 3.4 L Carbon Dioxide 21 L NT-Pro-B Natriuret Pep 3530 H Urine Ketones Urine Ascorbic Acid 11/06/18 23:57 RDW Potassium Carbon Dioxide NT-Pro-B Natriuret Pep Urine Ketones 20 H Urine Ascorbic Acid 40 H - EKG Interpretation by Me Additional EKG results interpreted by me: 11/07/18 00:56 EKG shows sinus rhythm at a rate of 66, multiple PACs, T wave inversions in V3 through V5, no ST segment elevations or depressions left axis deviation per my interpretation. Discharge - Discharge Clinical Impression: Pleural effusion, right Acute congestive heart failure Qualifiers: Heart failure type: unspecified Qualified Code(s): I50.9 - Heart failure, unspecified Condition: Stable Disposition: ADMITTED OBSERVATION Admitting Provider: Hospitalist [facility] Admitted: Telemetry I personally performed the services described in the documentation, reviewed and edited the documentation which was dictated to the scribe in my presence, and it accurately records my words and actions.
[2018-11-07] MEDS: POTASSIUM CHLORIDE 10 MEQ CAPSULE.ER PO SCH ×3 (01:16→23:36)
[2018-11-07 06:01] LABS: ABSOLUTE EOSINOPHILS # (AUTO) 0.2 10^3/uL (0.0-0.6); ABSOLUTE LYMPHOCYTES (AUTO) 1.9 10^3/uL (0.5-4.7); ABSOLUTE MONOCYTES (AUTO) 0.7 10^3/uL (0.1-1.4); ABSOLUTE NEUT (AUTO) 4.2 10^3/uL (1.7-8.2); BASOPHILS % (AUTO) 0.6 % (0-2); HEMATOCRIT 36.8 % (36.0-47.0); HEMOGLOBIN 12.5 g/dL (12.0-15.5); MEAN CORPUSCULAR HGB CONC 34.1 g/dL (32.0-36.0); MEAN CORPUSCULAR VOLUME 94 fl (80-97); MONOCYTES % (AUTO) 9.9 % (3-13); PLATELET COUNT 305 10^3/uL (150-450); RED BLOOD COUNT 3.91 10^6/uL (3.72-5.28); RED CELL DISTRIBUTION WIDTH 16.2 % (11.5-14.0); SEGMENTED NEUTROPHILS % (AUTO) 59.5 % (42-78); TOTAL CELLS COUNTED % (AUTO) 100 %
[2018-11-07] MEDS: ALPRAZOLAM 0.25 MG TABLET PO PRN ×2 (06:01→23:45)
[2018-11-07] MEDS: HEPARIN SOD (PORCINE) 5,000 UNIT/ML 1 ML SYRINGE SUBCUT SCH ×3 (06:02→23:37)
[2018-11-07 06:11] LABS: ANION GAP 12 (5-19); BLOOD UREA NITROGEN 11 mg/dL (7-20); CALCIUM 8.3 mg/dL (8.4-10.2); CARBON DIOXIDE 23 mmol/L (22-30); CHLORIDE 102 mmol/L (98-107); CREATINE KINASE 22 U/L (30-135); GLUCOSE 71 mg/dL (75-110); POTASSIUM 3.1 mmol/L (3.6-5.0); SODIUM 137.2 mmol/L (137-145)
--- NOTE | 2018-11-07 06:36 | PDOC H&P ---
History of Present Illness Admission Date/PCP: 11/07/18 01:03 MIHAELA MORGAN MD Patient complains of: Shortness of breath History of Present Illness: ESSENCE RODRIGUEZ is a 83 year old female with a past medical history of congestive heart failure, coronary artery disease status post coronary artery bypass graft remotely and subsequent coronary artery stenting x5, dyslipidemia, hypertension, hypothyroidism, osteoarthritis. She presents with 1 week of shortness of breath and a nonproductive cough in the emergency room she is found to have tachypnea, oxygen saturation of 90%, chest x-ray with right sided pleural effusion and elevated BNP of 3700. She is placed on oxygen and referred to the hospitalist for admission. Patient denies recent change in diet, medication regiment, chest pain, palpitations, nausea vomiting. Past Medical History Cardiac Medical History: Reports: Congestive Heart Failure - hospitaized 2005, Coronary Artery Disease, Myocardial Infarction - 2007, Hyperlipidema, Hypertension Denies: Atrial Fibrillation, Peripheral Vascular Disease, Heart Murmur Pulmonary Medical History: Denies: Tuberculosis Endocrine Medical History: Reports: Hypothyroidism Denies: Hyperthyroidism Renal/ Medical History: Denies: End Stage Renal Disease Malignancy Medical History: Denies: Breast Cancer, Cervical Cancer, Leukemia, Ovarian Cancer GI Medical History: Denies: Crohn's Disease, Gastroesophageal Reflux Disease, Hiatal Hernia Musculoskeltal Medical History: Reports: Arthritis Denies: Fibromyalgia Psychiatric Medical History: Denies: Bipolar Disorder, Depression, Post Traumatic Stress Disorder Hematology: Reports: Anemia - treated effectively with PO iron Denies: Hemophilia, Sickle Cell Disease Infectious Medical History: Denies: HIV Past Surgical History Past Surgical History: Reports: Appendectomy - 1950, Section, Cholecystectomy - lap 2010, Coronary Stent - x 5, Hysterectomy - PAULA BSO 1969', Orthopedic Surgery - bilateral knee replacements, Tonsillectomy - as child, Tubal Ligation Denies: Amputation, Colostomy, Coronary Artery Bypass Graft, Gastric Bypass Surgery, Herniorrhaphy, Mastectomy, Pacemaker Social History Information Source: Patient, [facility] Records Lives with: Family Smoking Status: Never Smoker Hx Recreational Drug Use: No Hx Prescription Drug Abuse: No - Advance Directive Resuscitation Status: Full Code Family History Family History: Hypertension Parental Family History Reviewed: Yes Children Family History Reviewed: Yes Sibling(s) Family History Reviewed.: Yes Medication/Allergy Home Medications: Metoprolol Tartrate [Lopressor 50 mg Tablet] 50 mg PO BID 08/11/11 Zolpidem Tartrate [Ambien] 10 mg PO HSP PRN 05/24/15 Alprazolam [Xanax 0.25 mg Tablet] 0.25 mg PO BIDP PRN #0 tablet 06/08/15 Amlodipine Besylate [Norvasc 5 mg Tablet] 10 mg PO QAM #0 tablet 06/08/15 Hydrochlorothiazide [Hydrodiuril 25 mg Tablet] 25 mg PO QAM #0 tablet 06/08/15 Isosorbide Mononitrate [Imdur 30 mg Tablet.er] 30 mg PO QAM #0 tab.er.24h 06/08/15 Lansoprazole [Prevacid 30 mg Odt Tablet] 30 mg PO Q6AM #0 tab.rap.dr 06/08/15 Levothyroxine Sodium [Synthroid 0.1 mg Tablet] 0.15 mg PO QAM #0 tablet 06/08/15 Nitroglycerin [Nitrostat 0.4 mg (1/150 Gr) Tabs 25/Bottle] 1 tab SL Q5MP PRN #0 bottle 06/08/15 Oxycodone HCl [Oxy-Ir 5 mg Tablet] 5 mg PO Q6HP PRN #60 tablet 06/08/15 Vitamin [-U Multiple Vitamin Capsule] 1 cap PO DAILY #0 capsule 06/08/15 Rivaroxaban [Xarelto 10 mg Tablet] 10 mg PO QHS #10 tablet 06/08/15 Tizanidine HCl [Zanaflex 4 mg Tablet] 4 mg PO BIDP PRN #0 tablet 06/08/15 Allergies/Adverse Reactions: sulfamethoxazole [From Bactrim] Allergy (Verified 07/03/18 09:35) trimethoprim [From Bactrim] Allergy (Verified 07/03/18 09:35) Review of Systems Constitutional: ABSENT: chills, fever(s), headache(s), weight gain, weight loss Eyes: ABSENT: visual disturbances Ears: ABSENT: hearing changes Cardiovascular: ABSENT: chest pain, dyspnea on exertion, edema, orthropnea, palpitations Respiratory: ABSENT: cough, hemoptysis Gastrointestinal: ABSENT: abdominal pain, constipation, diarrhea, hematemesis, hematochezia, nausea, vomiting Genitourinary: ABSENT: dysuria, hematuria Musculoskeletal: ABSENT: joint swelling Integumentary: ABSENT: rash, wounds Neurological: ABSENT: abnormal gait, abnormal speech, confusion, dizziness, focal weakness, syncope Psychiatric: ABSENT: anxiety, depression, homidical ideation, suicidal ideation Endocrine: ABSENT: cold intolerance, heat intolerance, polydipsia, polyuria Hematologic/Lymphatic: ABSENT: easy bleeding, easy bruising Physical Exam Vital Signs: Temp Pulse Resp BP Pulse Ox 97.5 F 72 18 152/78 H 96 11/06/18 14:48 11/07/18 02:59 11/07/18 02:01 11/07/18 02:01 11/07/18 02:01 Intake & Output 11/05/18 11/06/18 11/07/18 11:59 11:59 11:59 Weight 51.9 kg General appearance: PRESENT: no acute distress, well-developed, well-nourished Head exam: PRESENT: atraumatic, normocephalic Eye exam: PRESENT: conjunctiva pink, EOMI, PERRLA. ABSENT: scleral icterus Ear exam: PRESENT: normal external ear exam Mouth exam: PRESENT: moist, tongue midline Neck exam: ABSENT: carotid bruit, JVD, lymphadenopathy, thyromegaly Respiratory exam: PRESENT: crackles, tachypnea. ABSENT: rales, rhonchi, wheezes Cardiovascular exam: PRESENT: RRR. ABSENT: diastolic murmur, rubs, systolic murmur Pulses: PRESENT: normal dorsalis pedis pul Vascular exam: PRESENT: normal capillary refill GI/Abdominal exam: PRESENT: normal bowel sounds, soft. ABSENT: distended, guarding, mass, organolmegaly, rebound, tenderness Rectal exam: PRESENT: deferred Extremities exam: PRESENT: full ROM. ABSENT: calf tenderness, clubbing, pedal edema Neurological exam: PRESENT: alert, awake, oriented to person, oriented to place, oriented to time, oriented to situation, CN II-XII grossly intact. ABSENT: motor sensory deficit Psychiatric exam: PRESENT: appropriate affect, normal mood. ABSENT: homicidal ideation, suicidal ideation Skin exam: PRESENT: dry, intact, warm. ABSENT: cyanosis, rash Results Laboratory Results: 11/07/18 05:44 11/07/18 05:44 11/06/18 11/06/18 11/06/18 19:20 19:20 23:57 WBC 7.4 RBC 4.63 Hgb 14.8 Hct 43.8 MCV 95 MCH 31.9 MCHC 33.8 RDW 15.9 H Plt Count 375 Seg Neutrophils % 59.5 Lymphocytes % 31.6 Monocytes % 6.5 Eosinophils % 1.9 Basophils % 0.5 Absolute Neutrophils 4.4 Absolute Lymphocytes 2.3 Absolute Monocytes 0.5 Absolute Eosinophils 0.1 Absolute Basophils 0.0 Sodium 137.4 Potassium 3.4 L Chloride 102 Carbon Dioxide 21 L Anion Gap 14 BUN 13 Creatinine 0.59 Est GFR ( Amer) > 60 Est GFR (Non-Af Amer) > 60 Glucose 89 Calcium 8.9 Magnesium Urine Color YELLOW Urine Appearance CLEAR Urine pH 6.0 Ur Specific [place] 1.023 Urine Protein NEGATIVE Urine Glucose (UA) NEGATIVE Urine Ketones 20 H Urine Blood NEGATIVE Urine Nitrite NEGATIVE Ur Leukocyte Esterase NEGATIVE Urine WBC (Auto) 3 Urine RBC (Auto) 0 11/07/18 11/07/18 11/07/18 00:15 05:44 05:44 WBC 7.0 RBC 3.91 Hgb 12.5 D Hct 36.8 MCV 94 MCH 32.0 MCHC 34.1 RDW 16.2 H Plt Count 305 Seg Neutrophils % 59.5 Lymphocytes % 27.0 Monocytes % 9.9 Eosinophils % 3.0 Basophils % 0.6 Absolute Neutrophils 4.2 Absolute Lymphocytes 1.9 Absolute Monocytes 0.7 Absolute Eosinophils 0.2 Absolute Basophils 0.0 Sodium 137.2 Potassium 3.1 L Chloride 102 Carbon Dioxide 23 Anion Gap 12 BUN 11 Creatinine 0.53 Est GFR ( Amer) > 60 Est GFR (Non-Af Amer) > 60 Glucose 71 L Calcium 8.3 L Magnesium 1.9 Urine Color Urine Appearance Urine pH Ur Specific [place] Urine Protein Urine Glucose (UA) Urine Ketones Urine Blood Urine Nitrite Ur Leukocyte Esterase Urine WBC (Auto) Urine RBC (Auto) 11/06/18 11/06/18 11/07/18 19:20 19:20 00:15 Creatine Kinase Troponin I 0.027 0.017 NT-Pro-B Natriuret Pep 3530 H 11/07/18 11/07/18 05:44 05:44 Creatine Kinase 22 L Troponin I 0.020 NT-Pro-B Natriuret Pep Impressions: Chest X-Ray 11/06/18 18:34 IMPRESSION: Likely small right-sided pleural effusion. Otherwise stable radiographic appearance of the chest. Hip/Pelvis X-Ray 11/06/18 21:45 IMPRESSION: No acute finding. copyright 2011 [employer]- All Rights Reserved Assessment & Plan - Diagnosis (1) Acute congestive heart failure Qualifiers: Heart failure type: unspecified Qualified Code(s): I50.9 - Heart failure, unspecified Is this a current diagnosis for this admission?: Yes Plan: Congestive heart failure exacerbation without clear underlying cause. CHF care set, diuresis and education initiated. (2) Pleural effusion, right Is this a current diagnosis for this admission?: Yes Plan: Minimal right-sided pleural effusion. Consider repeat imaging (3) Hypokalemia Is this a current diagnosis for this admission?: Yes Plan: Potassium ordered, follow-up magnesium and repeat chemistry - Time Time Spent: 50 to 70 Minutes - Inpatient Certification Medical Necessity: Need Close Monitoring Due to Risk of Patient Decompensation
[2018-11-07] MEDS ORDERED: LEVOTHYROXINE SODIUM 0.1 MG TABLET PO SCH (08:00)
[2018-11-07] MEDS ORDERED: METOPROLOL TARTRATE 50 MG TABLET PO SCH (10:00)
[2018-11-07] MEDS ORDERED: FUROSEMIDE INJ/PF 40 MG/4 ML SDV IV SCH (10:00)
[2018-11-07] MEDS: DOCUSATE SODIUM 100 MG CAPSULE PO SCH (12:31)
[2018-11-07] MEDS: ISOSORBIDE MONONITRATE 30 MG TAB.ER.24H PO SCH (12:31)
[2018-11-07 13:06] LABS: ALANINE AMINOTRANSFERASE 13 U/L (9-52); ALBUMIN 2.8 g/dL (3.5-5.0); ALKALINE PHOSPHATASE 104 U/L (38-126); ASPARTATE AMINO TRANSFERASE 50 U/L (14-36); BILIRUBIN,DIRECT 0.4 mg/dL (0.0-0.4); BILIRUBIN,TOTAL 0.4 mg/dL (0.2-1.3); TOTAL PROTEIN 6.3 g/dL (6.3-8.2)
[2018-11-07] MEDS ORDERED: ALBUTEROL SULFATE HFA (90 MCG/PUFF) 200 PUFF/8.5 GM MDI IH PRN (16:05)
[2018-11-07] MEDS ORDERED: OXYCODONE HCL SR 10 MG TABLET PO PRN (16:05)
--- NOTE | 2018-11-07 17:34 | PDOC PROGRESS REPORT ---
Subjective Progress Note for:: 11/07/18 Subjective:: ESSENCE RODRIGUEZ is a 83 year old female with a past medical history of congestive heart failure, coronary artery disease status post coronary artery bypass graft remotely and subsequent coronary artery stenting x5, dyslipidemia, hypertension, hypothyroidism, osteoarthritis who was admitted 11/07/18 for acute CHF exacerbation. The patient was seen on morning rounds with her son and [id number] present. She reports experiencing chest discomfort and profound shortness of breath with minimal activity. She does ambulate with a walker 10-15 feet prior to becoming dyspneic. She denies any symptoms while at rest. Symptoms have been present for several weeks, but appear to be gradually worsening. Of note the patient has had a prolonged period of limited mobility due to a recent hip fracture resulting in inpatient rehabilitation followed by discharge to home where she lives alone but does receive physical therapy and home health nursing. She otherwise denies fever, chills, orthopnea, cough, abdominal pain, nausea vomiting and diarrhea. Family has many questions and concerns regarding the patient's poor appetite and increased fatigue/weakness. Patient was seen with Janine social work, present. We did discuss the patient's living situation and advised the patient and family it was not felt that she was currently safe to be living independently. Discharge planning will follow up regarding safe discharge plan. Reason For Visit: HEART FAILURE Physical Exam Vital Signs: Temp Pulse Resp BP Pulse Ox 97.8 F 68 16 147/79 H 98 11/07/18 16:27 11/07/18 16:27 11/07/18 16:27 11/07/18 16:27 11/07/18 16:27 Intake & Output 11/06/18 11/07/18 11/08/18 06:59 06:59 06:59 Weight 54.4 kg General appearance: PRESENT: no acute distress, well-developed, well-nourished Head exam: PRESENT: atraumatic, normocephalic Eye exam: PRESENT: conjunctiva pink, EOMI, PERRLA. ABSENT: scleral icterus Ear exam: PRESENT: normal external ear exam Mouth exam: PRESENT: moist, tongue midline Neck exam: ABSENT: carotid bruit, JVD, lymphadenopathy, thyromegaly Respiratory exam: PRESENT: clear to auscultation agata, symmetrical, unlabored. ABSENT: rales, rhonchi, wheezes Cardiovascular exam: PRESENT: RRR. ABSENT: diastolic murmur, rubs, systolic murmur Pulses: PRESENT: normal dorsalis pedis pul Vascular exam: PRESENT: normal capillary refill GI/Abdominal exam: PRESENT: normal bowel sounds, soft. ABSENT: distended, guarding, mass, organolmegaly, rebound, tenderness Rectal exam: PRESENT: deferred Extremities exam: PRESENT: full ROM. ABSENT: calf tenderness, clubbing, pedal edema Neurological exam: PRESENT: alert, awake, oriented to person, oriented to place, oriented to time, oriented to situation, CN II-XII grossly intact. ABSENT: motor sensory deficit Psychiatric exam: PRESENT: appropriate affect, normal mood. ABSENT: homicidal ideation, suicidal ideation Skin exam: PRESENT: dry, intact, warm. ABSENT: cyanosis, rash Results Laboratory Results: 11/07/18 05:44 11/07/18 05:44 11/06/18 11/06/18 11/06/18 19:20 19:20 23:57 WBC 7.4 RBC 4.63 Hgb 14.8 Hct 43.8 MCV 95 MCH 31.9 MCHC 33.8 RDW 15.9 H Plt Count 375 Seg Neutrophils % 59.5 Lymphocytes % 31.6 Monocytes % 6.5 Eosinophils % 1.9 Basophils % 0.5 Absolute Neutrophils 4.4 Absolute Lymphocytes 2.3 Absolute Monocytes 0.5 Absolute Eosinophils 0.1 Absolute Basophils 0.0 Sodium 137.4 Potassium 3.4 L Chloride 102 Carbon Dioxide 21 L Anion Gap 14 BUN 13 Creatinine 0.59 Est GFR ( Amer) > 60 Est GFR (Non-Af Amer) > 60 Glucose 89 Calcium 8.9 Magnesium Total Bilirubin AST ALT Alkaline Phosphatase Total Protein Albumin Urine Color YELLOW Urine Appearance CLEAR Urine pH 6.0 Ur Specific [place] 1.023 Urine Protein NEGATIVE Urine Glucose (UA) NEGATIVE Urine Ketones 20 H Urine Blood NEGATIVE Urine Nitrite NEGATIVE Ur Leukocyte Esterase NEGATIVE Urine WBC (Auto) 3 Urine RBC (Auto) 0 11/07/18 11/07/18 11/07/18 00:15 05:44 05:44 WBC 7.0 RBC 3.91 Hgb 12.5 D Hct 36.8 MCV 94 MCH 32.0 MCHC 34.1 RDW 16.2 H Plt Count 305 Seg Neutrophils % 59.5 Lymphocytes % 27.0 Monocytes % 9.9 Eosinophils % 3.0 Basophils % 0.6 Absolute Neutrophils 4.2 Absolute Lymphocytes 1.9 Absolute Monocytes 0.7 Absolute Eosinophils 0.2 Absolute Basophils 0.0 Sodium 137.2 Potassium 3.1 L Chloride 102 Carbon Dioxide 23 Anion Gap 12 BUN 11 Creatinine 0.53 Est GFR ( Amer) > 60 Est GFR (Non-Af Amer) > 60 Glucose 71 L Calcium 8.3 L Magnesium 1.9 Total Bilirubin AST ALT Alkaline Phosphatase Total Protein Albumin Urine Color Urine Appearance Urine pH Ur Specific [place] Urine Protein Urine Glucose (UA) Urine Ketones Urine Blood Urine Nitrite Ur Leukocyte Esterase Urine WBC (Auto) Urine RBC (Auto) 11/07/18 05:44 WBC RBC Hgb Hct MCV MCH MCHC RDW Plt Count Seg Neutrophils % Lymphocytes % Monocytes % Eosinophils % Basophils % Absolute Neutrophils Absolute Lymphocytes Absolute Monocytes Absolute Eosinophils Absolute Basophils Sodium Potassium Chloride Carbon Dioxide Anion Gap BUN Creatinine Est GFR ( Amer) Est GFR (Non-Af Amer) Glucose Calcium Magnesium Total Bilirubin 0.4 AST 50 H ALT 13 Alkaline Phosphatase 104 Total Protein 6.3 Albumin 2.8 L Urine Color Urine Appearance Urine pH Ur Specific [place] Urine Protein Urine Glucose (UA) Urine Ketones Urine Blood Urine Nitrite Ur Leukocyte Esterase Urine WBC (Auto) Urine RBC (Auto) 11/06/18 11/06/18 11/07/18 19:20 19:20 00:15 Creatine Kinase Troponin I 0.027 0.017 NT-Pro-B Natriuret Pep 3530 H 11/07/18 11/07/18 11/07/18 05:44 05:44 05:44 Creatine Kinase 22 L Troponin I 0.020 NT-Pro-B Natriuret Pep 2070 H Impressions: Chest X-Ray 11/06/18 18:34 IMPRESSION: Likely small right-sided pleural effusion. Otherwise stable radiographic appearance of the chest. Hip/Pelvis X-Ray 11/06/18 21:45 IMPRESSION: No acute finding. copyright 2011 [employer]- All Rights Reserved Assessment & Plan - Diagnosis (1) Acute congestive heart failure Qualifiers: Heart failure type: unspecified Qualified Code(s): I50.9 - Heart failure, unspecified Is this a current diagnosis for this admission?: Yes Plan: proBNP elevated to 3500-> 2070 Troponins negative x3 EKG demonstrates sinus rhythm w/ PAC CXR reveals small right pleural effusion but otherwise nml. She is admitted to the medical floor on continuous telemetry. She has been placed on a cardiac diet with daily weights. Diuresed with IV furosemide. She is provided supplemental oxygen as needed to maintain saturations greater than 89%. With ambulation, she was noted to desat into the mid 70s (however, it was noted that she has pain on austrian and there was not a steady Pleth). She did become tachycardic by telemetry w/ HR 160 that returned to nml immediately with rest. She was ambulated again on oxygen with increase in HR from mid-60s to 90s. SpO2 was not accurate. (2) Dyspnea on minimal exertion Is this a current diagnosis for this admission?: Yes Plan: Secondary to #1. She is provided supplemental oxygen as needed to maintain saturations greater than 89%. With ambulation, she was noted to desat into the mid 70s (however, it was noted that she has pain on austrian and there was not a steady Pleth). She did become tachycardic by telemetry w/ HR 160 that returned to nml immediately with rest. She was ambulated again on oxygen with increase in HR from mid-60s to 90s. SpO2 was not accurate. Will repeat oxygen qualification study in the morning. (3) Hypokalemia Is this a current diagnosis for this admission?: Yes Plan: Secondary to IV lasix. Oral replacement today. Will monitor daily chemistries and continue to replace as indicated. (4) Pleural effusion, right Is this a current diagnosis for this admission?: Yes Plan: Likely secondary to #1. May also be related to the patient's debility and sedentary lifestyle following orthopedic injury in July. Receiving IV furosemide. Consider repeat imaging. (5) Debility Is this a current diagnosis for this admission?: Yes Plan: Physical therapy is consulted. Discharge planning is consulted. - Time Time Spent with patient: 35 or more minutes Medications reviewed and adjusted accordingly: Yes Anticipated discharge: Home with Homehealth Within: within 24 hours
[2018-11-07] MEDS ORDERED: FAMOTIDINE 20 MG TABLET PO SCH (22:00)
[2018-11-07] MEDS ORDERED: RIVAROXABAN 10 MG TABLET PO SCH (22:00)
[2018-11-07] MEDS: ATORVASTATIN CALCIUM 20 MG TABLET PO SCH (23:37)
[2018-11-07] MEDS: FAMOTIDINE 20 MG TABLET PO SCH (23:37)
[2018-11-08 05:20] LABS: ABSOLUTE BASOPHILS # (AUTO) 0.1 10^3/uL (0.0-0.2); ABSOLUTE EOSINOPHILS # (AUTO) 0.4 10^3/uL (0.0-0.6); ABSOLUTE LYMPHOCYTES (AUTO) 1.7 10^3/uL (0.5-4.7); ABSOLUTE MONOCYTES (AUTO) 0.6 10^3/uL (0.1-1.4); ABSOLUTE NEUT (AUTO) 4.2 10^3/uL (1.7-8.2); BASOPHILS % (AUTO) 0.8 % (0-2); EOSINOPHILS % (AUTO) 5.3 % (0-6); HEMATOCRIT 34.6 % (36.0-47.0); HEMOGLOBIN 12.1 g/dL (12.0-15.5); LYMPHOCYTES % (AUTO) 24.1 % (13-45); MEAN CORPUSCULAR HEMOGLOBIN 32.7 pg (27.0-33.4); MEAN CORPUSCULAR HGB CONC 34.9 g/dL (32.0-36.0); MEAN CORPUSCULAR VOLUME 94 fl (80-97); MONOCYTES % (AUTO) 8.7 % (3-13); PLATELET COUNT 254 10^3/uL (150-450); RED CELL DISTRIBUTION WIDTH 15.9 % (11.5-14.0); SEGMENTED NEUTROPHILS % (AUTO) 61.1 % (42-78); TOTAL CELLS COUNTED % (AUTO) 100 %; WHITE BLOOD COUNT 6.9 10^3/uL (4.0-10.5)
[2018-11-08 05:49] LABS: ANION GAP 7 (5-19); BLOOD UREA NITROGEN 11 mg/dL (7-20); CALCIUM 8.3 mg/dL (8.4-10.2); CARBON DIOXIDE 26 mmol/L (22-30); CHLORIDE 105 mmol/L (98-107); GLUCOSE 85 mg/dL (75-110); SODIUM 137.6 mmol/L (137-145)
[2018-11-08 06:02] LABS: CREATINE KINASE < 20 U/L (30-135); POTASSIUM 4.1 mmol/L (3.6-5.0)
[2018-11-08] MEDS: HEPARIN SOD (PORCINE) 5,000 UNIT/ML 1 ML SYRINGE SUBCUT SCH ×3 (06:11→22:42)
[2018-11-08] MEDS: LEVOTHYROXINE SODIUM 0.025 MG TABLET PO SCH (06:12)
[2018-11-08] MEDS: LEVOTHYROXINE SODIUM 0.112 MG TABLET PO SCH (06:12)
[2018-11-08] MEDS ORDERED: AMLODIPINE BESYLATE 5 MG TABLET PO SCH (08:00)
[2018-11-08] MEDS ORDERED: HYDROCHLOROTHIAZIDE 25 MG TABLET PO SCH (08:00)
[2018-11-08] MEDS ORDERED: (PENDING PHARMACY ID) (Levothyroxine Sodium [Synthroid] 137 MCG) PO SCH (10:00)
[2018-11-08] MEDS ORDERED: ERGOCALCIFEROL PO SCH (10:00)
[2018-11-08] MEDS ORDERED: (PENDING PHARMACY ID) (Verapamil Hcl [Verapamil Er] 240 MG) PO SCH (10:00)
[2018-11-08] MEDS: DOCUSATE SODIUM 100 MG CAPSULE PO SCH (10:21)
[2018-11-08] MEDS: POTASSIUM CHLORIDE 10 MEQ CAPSULE.ER PO SCH ×2 (10:21→22:42)
[2018-11-08] MEDS: ISOSORBIDE MONONITRATE 30 MG TAB.ER.24H PO SCH (10:22)
[2018-11-08] MEDS: AMLODIPINE BESYLATE 10 MG TABLET PO SCH (10:22)
[2018-11-08] MEDS: MULTIVITAMINS W-IRON TABLET, CHEWABLE PO SCH (10:22)
[2018-11-08] MEDS: VERAPAMIL HCL 240 MG TABLET.SA PO SCH (10:22)
[2018-11-08] MEDS ORDERED: OXYCODONE HCL IR 5 MG TABLET PO PRN (11:04)
[2018-11-08] MEDS: ALPRAZOLAM 0.25 MG TABLET PO PRN (17:07)
--- NOTE | 2018-11-08 17:41 | PDOC DISCHARGE SUMMARY ---
General - Admit/Disc Date/PCP Admission Date/Primary Care Provider: 11/07/18 01:03 MIHAELA MORGAN MD Discharge Date: 11/08/18 - Discharge Diagnosis (1) Acute on chronic congestive heart failure Is this a current diagnosis for this admission?: Yes Summary: Patient presented with complaints of dyspnea, severe dyspnea and palpitations with minimal activity, and fatigue. She has a known history of CHF. ProBNP elevated to 3500-> 2070 Troponins negative x3 EKG demonstrates sinus rhythm w/ PAC CXR reveals small right pleural effusion but otherwise nml. She was admitted to the medical floor on continuous telemetry and diuresed with IV furosemide. She was been placed on a cardiac diet with daily weights. Her home medication regiment of amlodipine, isosorbide, verapamil, atorvastatin, and aspirin were continued. Her dyspnea while at rest rapidly improved, however, she did continue to require continuous supplemental oxygen to maintain saturations >89%. She continued to have difficulty with ambulation due to dyspnea on exertion, tachycardia, and dizziness. While ambulatory on room air, she was noted to desat to the mid 80s with tachycardia by telemetry (heart rate 130-160) which would return to normal immediately with rest. With oxygen, she was able to ambulate while maintaining oxygenation >89% with an appropriate HR of 103. 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 It was highly recommended that the patient arrange for 24 hour company (either in her home or returning to live with a family member) due to her frailty. We also discussed recommendations for an [facility] facility. The patient and family were adamant that the patient return to live in her home independently. At time of discharge, the patient was in stable condition and maintaining oxygen saturations while on supplemental oxygen at 2 L/min without dyspnea or chest dis comfort. She is advised to follow-up with her primary care provider within 1 week and to establish with a local canal superintendent within 1 month if she is not already done so. She is instructed to resume her home medication regiment, eat a low-sodium diet, and weigh herself daily. Arrangements have been made for the patient to receive home O2, home health nursing, physical therapy, occupational therapy, and an aide. She is advised to return to the emergency department immediately for any concerning symptoms. (2) Dyspnea on minimal exertion Is this a current diagnosis for this admission?: Yes Summary: Secondary to #1; improved. Discharge planning is consulted to arrange for home O2. (3) Hypokalemia Is this a current diagnosis for this admission?: Yes Summary: Resolved. (4) Pleural effusion, right Is this a current diagnosis for this admission?: Yes Summary: Likely secondary to #1. May also be related to the patient's debility and sedentary lifestyle following orthopedic injury in July. Chest x-ray (11/06/2018) revealed a likely small right-sided pleural effusion but otherwise stable radiographic appearance of the chest. (5) Debility Is this a current diagnosis for this admission?: Yes Summary: Physical therapy was consulted; recommended SNF for continued rehab at discharge. Unfortunately, both the patient and family have declined exploring this option. She has been ambulatory with supplemental oxygen and a front wheel walker 15-20 feet with minimal assistance. Discharge planning is consulted; home health nursing, physical therapy, occupational therapy, aide ordered at discharge. (6) Hypertension Is this a current diagnosis for this admission?: Yes Summary: Acceptable blood pressures on the patient's home medication regiment of amlodipine, isosorbide, and verapamil. (7) Depression with anxiety Is this a current diagnosis for this admission?: Yes Summary: The patient does admit to this and feelings of depression related to her loss of independence and health conditions. She does agree that living in a facility where she would have increased social interactions would likely be beneficial to her mental health, however, states that she is unwilling to move out of her home "just yet." She is agreeable to trial of Remeron for multipurpose therapy; depression, generalized anxiety, and appetite support. She is also agreeable to trial of twice daily BuSpar for management of her anxiety. She is advised of the importance of avoiding benzodiazepines such as Xanax. She is encouraged to discuss the symptoms with her primary care provider and to further explore the possibility of arrangements for assisted living/SNF residency. Patient may also benefit from palliative care referral. - Additional Information Resuscitation Status: Full Code Discharge Diet: As Tolerated, Other (Comments) - low sodium, high calorie, high protein Discharge Activity: Activity As Tolerated, Balance Activity w/Rest, Supervised Activity Prescriptions: Buspirone HCl [Buspar 10 mg Tablet] 10 mg PO ASDIR PRN #45 tablet PRN Reason: Mirtazapine [Remeron 15 mg Tablet] 7.5 mg PO QHS #30 tablet Home Medications: Albuterol Sulfate [Proair HFA Inhalation Aerosol 8.5 gm MDI] 2 puff IH Q4HP PRN 11/07/18 Atorvastatin Calcium [Lipitor 20 mg Tablet] 20 mg PO QHS 11/07/18 Ergocalciferol (Vitamin D2) [Vitamin D2] 1 cap PO DAILY 11/07/18 Famotidine [Heartburn Prevention] 20 mg PO Q12 11/07/18 Isosorbide Mononitrate [Imdur 30 mg Tablet.er] 30 mg PO DAILY 11/07/18 Levothyroxine Sodium [Synthroid] 137 mcg PO DAILY 11/07/18 Tizanidine HCl [Zanaflex 4 mg Tablet] 4 mg PO Q12HP PRN 11/07/18 Verapamil HCl [Verapamil ER] 240 mg PO DAILY 11/07/18 Amlodipine Besylate [Norvasc 10 mg Tablet] 10 mg PO QAM tablet 11/08/18 Buspirone HCl [Buspar 10 mg Tablet] 10 mg PO ASDIR PRN #45 tablet 11/08/18 Docusate Sodium [Colace 100 mg Capsule] 100 mg PO DAILY capsule 11/08/18 Isosorbide Mononitrate [Imdur 30 mg Tablet.er] 30 mg PO QAM tab.er.24h 11/08/18 Mirtazapine [Remeron 15 mg Tablet] 7.5 mg PO QHS #30 tablet 11/08/18 Multivitamins W-Iron [Flintstones Chewable Multivit W/Fe Tab] 2 tab PO DAILY tab.chew 11/08/18 History of Present Illness History of Present Illness: Per H&P by Dr. Rojo: ESSENCE RODRIGUEZ is a 83 year old female with a past medical history of congestive heart failure, coronary artery disease status post coronary artery bypass graft remotely and subsequent coronary artery stenting x5, dyslipidemia, hypertension, hypothyroidism, osteoarthritis. She presents with 1 week of shortness of breath and a nonproductive cough in the emergency room she is found to have tachypnea, oxygen saturation of 90%, chest x-ray with right sided pleural effusion and elevated BNP of 3700. She is placed on oxygen and referred to the hospitalist for admission. Patient denies recent change in diet, medication regiment, chest pain, palpitations, nausea vomiting. Physical Exam Vital Signs: Temp Pulse Resp BP Pulse Ox 97.9 F 92 17 148/89 H 96 11/08/18 11:10 11/08/18 11:10 11/08/18 11:10 11/08/18 11:10 11/08/18 11:10 Intake & Output 11/07/18 11/08/18 11/09/18 06:59 06:59 06:59 Intake Total 429 100 Balance 429 100 Weight 54.4 kg 52.7 kg General appearance: PRESENT: no acute distress, cooperative, hard of hearing, thin, well-developed, other - frail, chronically ill appearing Head exam: PRESENT: atraumatic, normocephalic Eye exam: PRESENT: conjunctiva pink, EOMI, PERRLA. ABSENT: scleral icterus Mouth exam: PRESENT: moist, tongue midline Neck exam: ABSENT: carotid bruit, JVD, lymphadenopathy, thyromegaly Respiratory exam: PRESENT: clear to auscultation agata, symmetrical, unlabored. ABSENT: rales, rhonchi, wheezes Cardiovascular exam: PRESENT: RRR. ABSENT: diastolic murmur, rubs, systolic murmur Pulses: PRESENT: normal dorsalis pedis pul Vascular exam: PRESENT: normal capillary refill GI/Abdominal exam: PRESENT: normal bowel sounds, soft. ABSENT: distended, guarding, mass, organolmegaly, rebound, tenderness Rectal exam: PRESENT: deferred Extremities exam: PRESENT: full ROM. ABSENT: calf tenderness, clubbing, pedal edema Neurological exam: PRESENT: alert, awake, oriented to person, oriented to place, oriented to time, oriented to situation, CN II-XII grossly intact. ABSENT: motor sensory deficit Psychiatric exam: PRESENT: appropriate affect, normal mood. ABSENT: homicidal ideation, suicidal ideation Skin exam: PRESENT: dry, intact, warm. ABSENT: cyanosis, rash Results Laboratory Results: 11/08/18 04:38 11/08/18 04:38 11/08/18 11/08/18 04:38 04:38 WBC 6.9 RBC 3.70 L Hgb 12.1 Hct 34.6 L MCV 94 MCH 32.7 MCHC 34.9 RDW 15.9 H Plt Count 254 Seg Neutrophils % 61.1 Lymphocytes % 24.1 Monocytes % 8.7 Eosinophils % 5.3 Basophils % 0.8 Absolute Neutrophils 4.2 Absolute Lymphocytes 1.7 Absolute Monocytes 0.6 Absolute Eosinophils 0.4 Absolute Basophils 0.1 Sodium 137.6 Potassium 4.1 D Chloride 105 Carbon Dioxide 26 Anion Gap 7 BUN 11 Creatinine 0.49 L Est GFR ( Amer) > 60 Est GFR (Non-Af Amer) > 60 Glucose 85 Calcium 8.3 L 11/06/18 11/06/18 11/07/18 19:20 19:20 00:15 Creatine Kinase Troponin I 0.027 0.017 NT-Pro-B Natriuret Pep 3530 H 11/07/18 11/07/18 11/07/18 05:44 05:44 05:44 Creatine Kinase 22 L Troponin I 0.020 NT-Pro-B Natriuret Pep 2070 H 11/08/18 11/08/18 04:38 04:38 Creatine Kinase < 20 L Troponin I 0.027 NT-Pro-B Natriuret Pep Impressions: Chest X-Ray 11/06/18 18:34 IMPRESSION: Likely small right-sided pleural effusion. Otherwise stable radiog raphic appearance of the chest. Hip/Pelvis X-Ray 11/06/18 21:45 IMPRESSION: No acute finding. copyright 2010 [employer]- All Rights Reserved Qualifiers - * PATIENT BEING DISCHARGED WITH ANY OF THE FOLLOWING DIAGNOSIS: Heart Failure HF Pt being discharged on ACEI for LVEF less than 40%?: No Reason(s) for not prescribing ACEI:: Not indicated HF Pt being discharged on ARBS for LVEF less than 40%?: No Reason(s) for not prescribing ARBS:: Not indicated HF Pt with Afib discharged with Warfarin?: No Reason(s) for not prescribing Warfarin:: Not indicated HF Pt discharged on evidence-based Beta Rush:: No Reason(s) for not prescribing evidence-based Beta Rush:: Not indicated Plan Discharge Plan: The patient is discharged home in stable condition to the care of family members with home health nursing, physical therapy and occupational therapy, and assistant in nursing services. She has been provided supplemental oxygen via nasal cannula at 2 L/min to wear continuously. She is instructed to follow-up with her primary care provider within 1 week. Recommend advance care planning/palliative care referral. Recommend cardiology follow up within 1 month. Return to the emergency department as needed for concerning symptoms. Time Spent: Greater than 30 Minutes
[2018-11-08] MEDS ORDERED: MIRTAZAPINE 15 MG TABLET PO SCH (22:00)
[2018-11-08] MEDS ORDERED: BUSPIRONE HCL 10 MG TABLET PO SCH (22:00)
[2018-11-08] MEDS: FAMOTIDINE 20 MG TABLET PO SCH (22:41)
[2018-11-08] MEDS: ATORVASTATIN CALCIUM 20 MG TABLET PO SCH (22:42)
[2018-11-09] MEDS: LEVOTHYROXINE SODIUM 0.025 MG TABLET PO SCH (05:17)
[2018-11-09] MEDS: LEVOTHYROXINE SODIUM 0.112 MG TABLET PO SCH (05:17)
[2018-11-09] MEDS: HEPARIN SOD (PORCINE) 5,000 UNIT/ML 1 ML SYRINGE SUBCUT SCH ×2 (05:17→13:31)
[2018-11-09] MEDS ORDERED: BUSPIRONE HCL 10 MG TABLET PO SCH (08:00)
[2018-11-09] MEDS: AMLODIPINE BESYLATE 10 MG TABLET PO SCH (08:25)
[2018-11-09] MEDS: ISOSORBIDE MONONITRATE 30 MG TAB.ER.24H PO SCH (08:26)
[2018-11-09] MEDS: DOCUSATE SODIUM 100 MG CAPSULE PO SCH (09:29)
[2018-11-09] MEDS: POTASSIUM CHLORIDE 10 MEQ CAPSULE.ER PO SCH (09:29)
[2018-11-09] MEDS: VERAPAMIL HCL 240 MG TABLET.SA PO SCH (09:30)
[2018-11-09] MEDS: MULTIVITAMINS W-IRON TABLET, CHEWABLE PO SCH (09:31)
[2018-11-09 16:06] VITALS: BP 124/71
== END 2018-11-09 16:43 | disposition home health service (06) ==
LOC: ER 14:28 → EH 11-07 01:03 → 5 11-07 02:56
PROVIDERS: ADMIT Internal Medicine; ATTEND Internal Medicine
DX: I11.0 Hypertensive heart disease with heart failure (principal); I50.9 Heart failure, unspecified; E87.6 Hypokalemia; J90 Pleural effusion, not elsewhere classified; R53.81 Other malaise; F41.8 Other specified anxiety disorders; E78.5 Hyperlipidemia, unspecified; E03.9 Hypothyroidism, unspecified; Z79.899 Other long term (current) drug therapy; I25.10 Atherosclerotic heart disease of native coronary artery without angina pectoris; M19.90 Unspecified osteoarthritis, unspecified site; Z74.09 Other reduced mobility; R63.0 Anorexia; R00.0 Tachycardia, unspecified; M62.81 Muscle weakness (generalized); R26.89 Other abnormalities of gait and mobility; M79.604 Pain in right leg; R05 Cough; R09.02 Hypoxemia; Z95.1 Presence of aortocoronary bypass graft; Z95.5 Presence of coronary angioplasty implant and graft; Z96.653 Presence of artificial knee joint, bilateral; Z82.49 Family history of ischemic heart disease and other diseases of the circulatory system; Z60.2 Problems related to living alone; Z96.641 Presence of right artificial hip joint; Z96.698 Presence of other orthopedic joint implants
CPT/HCPCS: 93005; 99285; 96374; 36415 ×3; 82550 ×2; 83735; 85025 ×3; 80076; 80048 ×3; 81001; 84484 ×3; 83880 ×2; 71045; 73502; 93010; 97162; A9270 ×24; J1644 ×3; J1940; J3490 ×3; G0378

== ENCOUNTER 2020-05-10 07:32 | Day surgery (SDC) | payer MEDICARE ==
[~2020-05-10 07:32] MED LIST: KETOROLAC TROMETHAMINE 0.45% 4 DROP/0.4 ML DROPERETTE OS PRN
[2020-05-10] MEDS: TETRACAINE HCL 0.5% OPH SOLN 4 ML OS PRN ×4 (08:02→08:42)
[2020-05-10] MEDS: TROPICAMIDE 1% OPH SOLN 15 ML OS PRN ×3 (08:02→08:22)
[2020-05-10] MEDS: CYCLOPENTOLATE 0.2%/PHENYLEPHRINE 1% OPH SOLN 2 ML OS PRN ×3 (08:02→08:22)
[2020-05-10] MEDS: BESIFLOXACIN HCL 0.6% OPH SUSP 5 ML BOTTLE OS PRN ×4 (08:02→09:05)
[2020-05-10] MEDS ORDERED: MIDAZOLAM 2 MG/2 ML INJ ONE ×2 (08:42→08:49)
[2020-05-10] MEDS ORDERED: FENTANYL CITRATE INJ/PF 100 MCG/2 ML AMPUL ONE (08:42)
[2020-05-10] MEDS: EPINEPHRINE INJ/PF 1 MG/1 ML AMPULE ONE ×2 (08:52)
[2020-05-10] MEDS: LIDOCAINE 1%/PHENYLEPHRINE 1.5% 0.8 ML SYRINGE ONE ×2 (08:52)
[2020-05-10] MEDS: CHONDR SU A NA/HYALUR INTRAOC KIT (SURGICARE) ONE ×2 (08:52)
[2020-05-10] MEDS: DORZOLAMIDE HCL 2%/TIMOLOL MALEAT 0.5% OPH SOLN 10 ML OS PRN ×2 (09:05)
[2020-05-10] MEDS: PREDNISOLONE ACETATE 1% OPH SUSP 5 ML OS PRN ×2 (09:05)
--- NOTE | 2020-05-10 10:42 | Operative Report ---
Operative Report-[facility] Operative Report: DATE OF SURGERY: May 10, 2020 PREOPERATIVE DIAGNOSIS: NUCLEAR CATARACT, LEFT EYE. POSTOPERATIVE DIAGNOSIS: NUCLEAR CATARACT, LEFT EYE. PROCEDURE PERFORMED: PHACOEMULSIFICATION WITH POSTERIOR CHAMBER INTRAOCULAR LENS IMPLANT, LEFT EYE. SURGEON: Greg Del Cid DO MEDICATIONS AND ANESTHESIA: Versed: IV Versed Tetracaine drops: 1 to 2 drops given as needed COMPLICATION: None INDICATIONS FOR SURGERY: Medical necessity: Best corrected visual acuity worse than 20/40 secondary to cataracts with impairment of ability to carry out needs or desired activities, blurred vision, visual distortion, reduced contrast sensitivity and/or glare with association functional impairment and supporting documentation/testing, and cataracts causing symptomatic impairment of visual functions not corrected with tolerable changes in glasses or contact lenses interfering with activities of daily life. PROCEDURE: Consent: The risks, benefits and alternatives of this procedures was discussed with the patient. The patient read and signed the consent forms, was identified and was seated in the exam chair. IOL: MX 60 E 24.0 IOL Diopters: Phacoemulsification with posterior chamber intraocular lens implant: The face was prepped with 5% povidone iodine solution, and a few drops of 5% povidone iodine solution was instilled into the inferior fornix. A non-fenestrated drape was placed over the eye and the lids were parted with the speculum. A paracentesis was made with a 15 degree blade, and 1% lidocaine MPF followed by viscoelastic was injected into the anterior chamber. A 2.4 mm metal micro- keratome was used to create a temporal clear corneal incision. A circular anterior capsulorrhexis was created, followed by hydro-dissection and hydro- delineation. The phacoemulsification hand piece was inserted and the nucleus was removed with the Phaco chop technique. The irrigation-aspiration hand piece was used to remove the residual cortex, and vacuum the posterior capsule. The capsular bag was inflated and viscoelastic and the above-mentioned IOL was injected into the eye with care to insert both leaning and trailing haptics in the capsular bag. The irrigation/aspiration hand piece was reinserted to remove residual viscoelastic from the capsular bag and anterior chamber. The corneal incision was hydrated, and anterior chamber was inflated with sterile BSS via the paracentesis site, and found to be watertight. Postop medication:1 drop of prednisolone into operative by followed by 1 drop of Cosopt into operative eye followed by 1 drop of Besivance intraoperative by Other:
== END 2020-05-10 09:37 | disposition home or self-care (01) ==
LOC: SC 07:32
PROVIDERS: ATTEND Ophthalmology
DX: H25.12 Age-related nuclear cataract, left eye (principal); I10 Essential (primary) hypertension; E03.9 Hypothyroidism, unspecified; M19.90 Unspecified osteoarthritis, unspecified site; Z98.41 Cataract extraction status, right eye; Z79.899 Other long term (current) drug therapy; Z83.511 Family history of glaucoma; Z80.9 Family history of malignant neoplasm, unspecified
CPT/HCPCS: 66984; 00142; V2632; J2250; J3490 ×3; A9270; J0171; J3010; 142